=== PATIENT | female | born 1945 | race Two or more races ===

== ENCOUNTER 2018-01-31 13:50 | Emergency (ER) | payer MEDICARE ==
[2018-01-31 14:20] VITALS: RESP 18
[2018-01-31] MEDS ORDERED: SODIUM CHLORIDE 0.9% 1,000 ML IV STA (14:35)
--- NOTE | 2018-01-31 14:40 | ED ---
Nausea/Vomiting/Diarrhea HPI - General Chief complaint: Nausea/Vomiting/Diarrhea Stated complaint: severe diarrhea/dehydration Time Seen by Provider: 01/31/18 14:24 Source: patient, RN notes reviewed Mode of arrival: ambulatory Limitations: no limitations - History of Present Illness Initial comments: This is a 73-year-old female who presents to the emergency department with chief complaint of diarrhea. Patient states that she has had watery, nonbloody diarrhea since last Sunday. She states that she has diarrhea when she wakes up in the morning and immediately after eating. She states that she has only been eating chicken broth and today had toast and bananas. Patient states today was the first day that she has not had diarrhea following eating. She reports severe cramping before having a bowel movement. She states she feels dehydrated. Patient denies any abdominal pain. Denies fevers or chills, nausea or vomiting. Patient states that for the past month she was being treated for an upper respiratory infection with steroids. She states that she finished a Medrol dose-crystal on Sunday. Denies recent travel. - Related Data Home Medications Medication Instructions Recorded Confirmed Ginkgo Biloba [place] Extract [Ginkgo] 60 mg PO DAILY 12/10/15 01/31/18 Meloxicam [Mobic] 7.5 mg PO DAILY 12/10/15 01/31/18 Previous Rx's Medication Instructions Recorded Meclizine [Antivert] 25 mg PO TID #20 tab 12/10/15 Diphenox-Atrop 2.5-0.025 mg 1 - 2 tab PO QID PRN 3 Days #24 tab 01/31/18 [Lomotil] Allergies Allergy/AdvReac Type Severity Reaction Status Date / Time amoxicillin Allergy Rash/Hives Verified 01/31/18 14:39 meperidine HCl [From Demerol] AdvReac Nausea & Verified 01/31/18 14:39 Vomiting Review of Systems ROS Statement: Those systems with pertinent positive or pertinent negative responses have been documented in the HPI. ROS Other: All systems not noted in ROS Statement are negative. Past Medical History Past Medical History: No Reported History History of Any Multi-Drug Resistant Organisms: None Reported Past Surgical History: Appendectomy, Tonsillectomy Past Psychological History: No Psychological Hx Reported Smoking Status: Never smoker Past Alcohol Use History: None Reported Past Drug Use History: None Reported General Exam - General Exam Comments Initial Comments: General: Awake and alert, well-developed; in no apparent distress. Does not appear acutely ill. HEENT: Head atraumatic, normocephalic. Pupils are equal, round and reactive to light. Extraocular movements intact. Oropharynx moist without erythema or exudate. Neck: Supple. Normal ROM. Cardiovascular: Regular rate and rhythm. No murmurs, rubs or gallops. Chest symmetrical. Respiratory: Lungs clear to auscultation bilaterally. No wheezes, rales or rhonchi. Normal respiratory effort with no use of accessory muscles. Abdomen: Soft, thin, non-tender, non-distended. No rigidity, rebound or guarding. Normal bowel sounds in all 4 quadrants. Musculoskeletal: Normal ROM, no tenderness bilateral upper and lower extremities. Ambulating normally. Skin: [place], warm and dry without rashes or lesions. Neurological: Alert and oriented x3. CN II-XII grossly intact. Speech is fluent and answers are appropriate. No focal neuro deficits. Psychiatric: Normal mood and affect. No overt signs of depression or anxiety noted. Limitations: no limitations Course Vital Signs 01/31/18 14:15 Temperature 98.4 F Pulse Rate 79 Respiratory 18 Rate Blood Pressure 115/50 O2 Sat by Pulse 96 Oximetry Medical Decision Making - Medical Decision Making This is a 73-year-old female who presents to the emergency department with chief complaint of diarrhea. Patient reports non-bloody diarrhea that resolves with fasting for the past 5 days. Denies abdominal pain other than cramping prior to having a bowel movement. Denies fevers. Physical examination is unremarkable. CBC and CMP are within normal limits. Patient unable to provide a urine or stool sample. Patient was given a liter bolus in the emergency department. Patient will be prescribed Lomotil to be taken only if she is having active diarrhea. Instructed patient to continue BRAT diet for the next couple of days and to slowly introduce new foods. Patient's vital signs and stable and she is in no acute distress. She will be discharged home at this time. She is in agreement and voices understanding. All questions were answered. - Lab Data Result diagrams: 01/31/18 14:41 01/31/18 14:41 Lab Results 01/31/18 01/31/18 Range/Units 14:41 14:41 WBC 8.4 (3.8-10.6) k/uL RBC 4.22 (3.80-5.40) m/uL Hgb 12.5 (11.4-16.0) gm/dL Hct 40.4 (34.0-46.0) % MCV 95.8 (80.0-100.0) fL MCH 29.7 (25.0-35.0) pg MCHC 31.1 (31.0-37.0) g/dL RDW 12.9 (11.5-15.5) % Plt Count 351 (150-450) k/uL Neutrophils % 72 % Lymphocytes % 17 % Monocytes % 7 % Eosinophils % 2 % Basophils % 1 % Neutrophils # 6.1 (1.3-7.7) k/uL Lymphocytes # 1.5 (1.0-4.8) k/uL Monocytes # 0.6 (0-1.0) k/uL Eosinophils # 0.2 (0-0.7) k/uL Basophils # 0.1 (0-0.2) k/uL Sodium 142 (137-145) mmol/L Potassium 3.5 (3.5-5.1) mmol/L Chloride 107 (98-107) mmol/L Carbon Dioxide 27 (22-30) mmol/L Anion Gap 8 mmol/L BUN 15 (7-17) mg/dL Creatinine 0.87 (0.52-1.04) mg/dL Est GFR (CKD-EPI)AfAm 76 (>60 ml/min/1.73 sqM) Est GFR (CKD-EPI)NonAf 66 (>60 ml/min/1.73 sqM) Glucose 94 (74-99) mg/dL Calcium 9.4 (8.4-10.2) mg/dL Total Bilirubin 1.0 (0.2-1.3) mg/dL AST 21 (14-36) U/L ALT 21 (9-52) U/L Alkaline Phosphatase 56 (38-126) U/L Total Protein 6.2 L (6.3-8.2) g/dL Albumin 3.5 (3.5-5.0) g/dL Disposition Clinical Impression: Acute diarrhea Disposition: HOME SELF-CARE Condition: Good Instructions: Acute Diarrhea (ED) Additional Instructions: Please take medications as prescribed. Please continue the BRAT diet and slowly introduce new foods as tolerated. Please follow up with primary care provider within 1-2 days. Return to emergency department if symptoms should worsen or any concerns arise. Prescriptions: Diphenox-Atrop 2.5-0.025 mg [Lomotil] 1 - 2 tab PO QID PRN 3 Days #24 tab PRN Reason: Diarrhea Is patient prescribed a controlled substance at d/c from ED?: No Referrals: Joel Reis DO [Primary Care Provider] - 1-2 days Time of Disposition: 15:36
[2018-01-31 14:56] LABS: Basophils # (A) 0.1 k/uL (0-0.2); Basophils % (A) 1 %; Eosinophils # (A) 0.2 k/uL (0-0.7); Eosinophils % (A) 2 %; HCT 40.4 % (34.0-46.0); HGB 12.5 gm/dL (11.4-16.0); Lymphocytes # (A) 1.5 k/uL (1.0-4.8); Lymphocytes % (A) 17 %; MCH 29.7 pg (25.0-35.0); MCHC 31.1 g/dL (31.0-37.0); MCV 95.8 fL (80.0-100.0); Mean Platelet Volume 6.3; Monocytes # (A) 0.6 k/uL (0-1.0); Monocytes % (A) 7 %; Neutrophils # (A) 6.1 k/uL (1.3-7.7); Neutrophils % (A) 72 %; Platelet Count 351 k/uL (150-450); RBC 4.22 m/uL (3.80-5.40); RDW 12.9 % (11.5-15.5); WBC 8.4 k/uL (3.8-10.6)
[2018-01-31 15:03] LABS: Albumin 3.5 g/dL (3.5-5.0); Calcium 9.4 mg/dL (8.4-10.2); Potassium 3.5 mmol/L (3.5-5.1); Total Protein 6.2 g/dL (6.3-8.2)
[2018-01-31 15:51] VITALS: BP 126/58; PULSE 75; TEMP 98.3
== END 2018-01-31 15:50 | disposition home or self-care (01) ==
LOC: EC 13:50
DX: R19.7 Diarrhea, unspecified (principal); Z88.0 Allergy status to penicillin; Z88.5 Allergy status to narcotic agent; Z79.1 Long term (current) use of non-steroidal anti-inflammatories (NSAID); Z90.49 Acquired absence of other specified parts of digestive tract
CPT/HCPCS: 36415; 80053; 85025; 96360; 99284

== ENCOUNTER → 2019-07-11 | Outpatient (CLI) | payer MEDICARE, OTHER ==
--- NOTE | 2019-07-11 11:49 | FL ---
EXAMINATION TYPE: FL barium swallow w video DATE OF EXAM: 07/11/2019 COMPARISON: NONE HISTORY: Dysphagia. The patient was evaluated in the lateral projection during real-time fluoroscopy, during ingestion of barium mixed with solids and liquids. No aspiration or laryngeal penetration. See report from [facility]. 1.12 minutes fluoroscopy time, no images
== END | disposition home or self-care (01) ==
LOC: RADFLMAIN 10:51
PROVIDERS: ATTEND Family Medicine
DX: R13.10 Dysphagia, unspecified (principal)
CPT/HCPCS: 74230

== ENCOUNTER → 2020-06-24 | Outpatient (CLI) | payer MEDICARE, OTHER ==
--- NOTE | 2020-06-24 10:50 | XR ---
EXAM TYPE: LUMBAR SPINE X RAY SERIES COMPARISON: NONE HISTORY: Pain TECHNIQUE: 4 views are submitted. FINDINGS: There is a scoliotic curvature of the spine with multilevel degenerative disc disease and diffuse ost eopenia. Vascular calcifications in the left upper quadrant. Multilevel facet arthropathy. Severe deg enerative disc disease L5-S1 and levels L1-L4. IMPRESSION: 1. Scoliosis with multilevel severe degenerative disc disease. Suspect canal stenosis and foraminal e ncroachment at multiple levels recommend follow-up MRI.
--- NOTE | 2020-06-24 10:51 | XR ---
EXAMINATION TYPE: XR shoulder complete RT DATE OF EXAM: 06/24/2020 COMPARISON: NONE HISTORY: Pain TECHNIQUE: Three views are submitted. FINDINGS: The osseous structures are intact. There is no acute fracture or dislocation. There is AC joint arth ropathy. IMPRESSION: 1. AC joint arthropathy
--- NOTE | 2020-06-24 10:52 | XR ---
EXAMINATION TYPE: XR thoracic spine complete DATE OF EXAM: 06/24/2020 COMPARISON: NONE HISTORY: Pain TECHNIQUE: 3 views submitted FINDINGS: Alignment is anatomic. There is no compression deformities. Moderate multilevel degenerative disc di sease. Scoliosis of the spine. Atherosclerotic change of the aorta. IMPRESSION: 1. Multilevel hypertrophic and degenerative disc disease.
== END | disposition home or self-care (01) ==
LOC: RADXRYALE 10:18
PROVIDERS: ATTEND Physician Assistant Medical
DX: M51.34 Other intervertebral disc degeneration, thoracic region (principal); M51.36 Other intervertebral disc degeneration, lumbar region; M41.86 Other forms of scoliosis, lumbar region; M12.811 Other specific arthropathies, not elsewhere classified, right shoulder
CPT/HCPCS: 72072; 72110

== ENCOUNTER → 2020-11-17 | Outpatient (CLI) | payer OTHER, MEDICARE ==
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
== END | disposition home or self-care (01) ==
LOC: RADXRYALE 15:26
PROVIDERS: ATTEND Physician Assistant Medical
DX: M17.12 Unilateral primary osteoarthritis, left knee (principal)

== ENCOUNTER 2020-12-01 11:53 | Emergency (ER) | payer OTHER, MEDICARE ==
[2020-12-01 12:18] VITALS: BP 113/70; PULSE 82; RESP 20; TEMP 98.2
[2020-12-01] MEDS ORDERED: ONDANSETRON 4 MG/2 ML VIAL IVP STA (13:15)
[2020-12-01] MEDS ORDERED: SODIUM CHLORIDE 0.9% 1,000 ML IV STA (13:15)
[2020-12-01] MEDS ORDERED: MORPHINE SULFATE 4 MG/ML SYRINGE IV STA (13:15)
[2020-12-01 14:05] LABS: Basophils # (A) 0.1 k/uL (0-0.2); Basophils % (A) 1 %; Eosinophils # (A) 0.1 k/uL (0-0.7); Eosinophils % (A) 3 %; HCT 36.5 % (34.0-46.0); HGB 12.1 gm/dL (11.4-16.0); Lymphocytes # (A) 1.1 k/uL (1.0-4.8); Lymphocytes % (A) 30 %; MCH 31.9 pg (25.0-35.0); MCHC 33.2 g/dL (31.0-37.0); MCV 96.2 fL (80.0-100.0); Mean Platelet Volume 7.1; Monocytes # (A) 0.3 k/uL (0-1.0); Monocytes % (A) 7 %; Neutrophils # (A) 2.1 k/uL (1.3-7.7); Neutrophils % (A) 56 %; Platelet Count 318 k/uL (150-450); RDW 12.3 % (11.5-15.5); WBC 3.7 k/uL (3.8-10.6)
[2020-12-01 14:21] LABS: Albumin 3.9 g/dL (3.5-5.0); Calcium 9.5 mg/dL (8.4-10.2); Total Bilirubin 0.6 mg/dL (0.2-1.3); Total Protein 6.2 g/dL (6.3-8.2)
[2020-12-01 14:30] LABS: Appearance,Urine Clear (Clear); Bilirubin,Urine Negative (Negative); Blood,Urine Negative (Negative); Color,Urine Light Yellow; Glucose,Urine (UA) Negative (Negative); Ketones,Urine Negative (Negative); Leukocyte Esterase,Urine Trace (Negative); Mucus,Urine Rare /hpf; Nitrite,Urine Negative (Negative); Protein,Urine Negative (Negative); RBC,Urine <1 /hpf (0-5); Specific Gravity,Urine 1.007 (1.001-1.035); Urobilinogen,Urine <2.0 mg/dL (<2.0); WBC,Urine 1 /hpf (0-5)
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
[2020-12-01] MEDS ORDERED: ONDANSETRON 4 MG ODT STARTER PACK 2 TAB BTL PO STA (15:32)
== END 2020-12-01 15:46 | disposition home or self-care (01) ==
LOC: EC 11:53
DX: R10.84 Generalized abdominal pain (principal); K21.9 Gastro-esophageal reflux disease without esophagitis
CPT/HCPCS: 36415; 74177; 80053; 81001; 82150; 83605; 83690; 85025; 96360; 99284

== ENCOUNTER → 2021-03-31 | Outpatient (CLI) | payer MEDICARE, OTHER ==
--- NOTE | 2021-03-31 12:07 | CT ---
EXAMINATION TYPE: CT chest w con DATE OF EXAM: 03/31/2021 COMPARISON: CT abdomen pelvis 12/01/2020 HISTORY: Follow up nodule. CT DLP: 133.4 mGycm Automated exposure control for dose reduction was used. TECHNIQUE: CT scan of the chest is performed with IV Contrast, patient injected with 65 mL of Isovue 300. MIP I mages are created on CT scanner and reviewed. 3D reconstructed images are created on an independent w orkstation and reviewed. FINDINGS: Heart normal size without pericardial effusion. Scattered calcified and noncalcified pleural plaques are noted. 5 mm subpleural pulmonary nodule peripheral left base should be reassessed at follow-up. D ependent atelectasis on the left. Calcified granuloma left base. Apical pleural thickening bilaterally. Subpleural nodularity measuring less than 5 mm too small to ch aracterize. Mixed density right adrenal mass with internal calcification measuring 3.2 cm. Calcified splenic della ry aneurysm incidentally noted. Atherosclerotic change of the aorta. Trace of pericardial fluid noted. Aorta of normal caliber. No pa thologic adenopathy within the hilum and mediastinum. Hypertrophic and degenerative changes spine wit h curvature. There is a 1.8 cm hyperdense area in the dome of the liver which could represent a flash hemangioma. IMPRESSION: 1. Stable 5 mm left lower lobe pulmonary nodule with additional sub-5 mm upper lobe pulmonary nodules . Most likely are benign. Six-month follow up CT of the chest recommended. 2. Stable right adrenal mass which is indeterminate by CT scan. 3. Nonspecific 1.8 cm right hepatic lesion hyperdense on arterial imaging most likely in the basis of a flash hemangioma. However, this was not seen with certainty on the prior exam. Recommend follow-up MRI of the liver.
== END | disposition home or self-care (01) ==
LOC: RADCTMAIN 10:38
PROVIDERS: ATTEND Family Medicine
DX: R91.8 Other nonspecific abnormal finding of lung field (principal); E27.8 Other specified disorders of adrenal gland; K76.89 Other specified diseases of liver
CPT/HCPCS: 82565; 84520; 71260; 36415; Q9967